=== PATIENT | female | born 1965 | race Two or more races ===

== ENCOUNTER → 2017-05-18 | Outpatient (CLI) | payer OTHER | END | disposition home or self-care (01) | LOC: CFH 14:15 | PROVIDERS: ATTEND Nurse Practitioner | DX: Z12.31 Encounter for screening mammogram for malignant neoplasm of breast (principal) | CPT/HCPCS: G0202 ==

== ENCOUNTER 2021-01-26 14:55 | Emergency (ER) | payer BC ==
[~2021-01-26] VITALS: Ht 165.1 cm; Wt 65.6 kg
[2021-01-26] MEDS ORDERED: MORPHINE SULFATE 4 MG/ML, 1ML IVPush PRN (15:30)
[2021-01-26] MEDS ORDERED: SODIUM CHLORIDE FLUSH 10ML SYR IVF ONE (15:30)
[2021-01-26] MEDS ORDERED: ONDANSETRON 2MG/ML, 2ML IVPush ONE (15:30)
[2021-01-26 15:36] LABS: BASOPHILS % (AUTO) 1 % (0-1); EOSINOPHILS % (AUTO) 2 % (1-7); LYMPHOCYTES % (AUTO) 24 % (22-44); MEAN CORPUSCULAR HEMOGLOBIN 30.2 pg (27.0-34.8); MEAN CORPUSCULAR HGB CONC 34.1 g/dL (32.4-35.8); MEAN PLATELET VOLUME 7.6 fL (7.4-10.4); MONOCYTES % (AUTO) 7 % (2-9); NEUTROPHILS % (AUTO) 66 % (42-75); PLATELET COUNT 271 x10^3/uL (130-400); RED BLOOD COUNT 4.51 x10^6/uL (3.82-5.3); RED CELL DISTRIBUTION WIDTH 12.8 % (9.6-15.2)
[2021-01-26 15:38] LABS: MD NO
[2021-01-26 15:42] LABS: MICROSCOPIC AUTO
[2021-01-26] MEDS ORDERED: ONDANSETRON 2MG/ML, 2ML ONE (15:48)
[2021-01-26 15:49] LABS: ALANINE AMINOTRANSFERASE 38 U/L (12-78); ALBUMIN 3.9 g/dL (3.4-5.0); ANION GAP 6 mmol/L (5-15); CALCIUM 9.3 mg/dL (8.5-10.1); CHLORIDE 109 mmol/L (98-107); CREATININE 0.78 mg/dL (0.55-1.02)
[2021-01-26] MEDS ORDERED: MORPHINE SULFATE 4 MG/ML, 1ML ONE (15:49)
[2021-01-26 15:52] LABS: ALKALINE PHOSPHATASE 83 U/L (45-117); BILIRUBIN,TOTAL 0.3 mg/dL (0.2-1.0); TOTAL PROTEIN 7.3 g/dL (6.4-8.2)
--- NOTE | 2021-01-26 15:55 | NUR ---
PT HAS CO ABDOMINAL PAIN, FLANK PAIN. DENIES PAINUFL URINATION MEDICATED FOR PAIN. IV ESTABLISHED.
--- NOTE | 2021-01-26 16:42 | NUR ---
REPORT TO LONNIE
--- NOTE | 2021-01-26 16:42 | NUR ---
RECEIVED REPORT FROM FRANC ZAIDI. PT RESTING ON ZARIALUPE. NADN. ADORNO.
[2021-01-26] MEDS ORDERED: MAGNESIUM CITRATE 300ML ORAL SOL ONE (16:52)
[2021-01-26] MEDS ORDERED: MAGNESIUM CITRATE 300ML ORAL SOL PO ONE (17:00)
[2021-01-26 17:42] VITALS: BP 113/66
--- NOTE | 2021-01-26 17:42 | NUR ---
PT STATES NO CHANGES AFTER MEDICATION. NO BM. PT RESTING ON GURNEY. NADN. VSS. PT PLACED FOR RECHECK.
== END 2021-01-26 18:09 | disposition home or self-care (01) ==
LOC: EDBD → MERGE 15:25 → ED 15:25
DX: K59.00 Constipation, unspecified (principal); R10.32 Left lower quadrant pain; K86.2 Cyst of pancreas
CPT/HCPCS: 36415; 74176; 80053; 81001; 83690; 85025; 87086; 96374; 96375; 99284; J2270; J2405

== ENCOUNTER 2021-01-27 22:49 | Emergency (ER) | payer BC ==
[~2021-01-27] VITALS: Ht 165.1 cm; Wt 66.4 kg
--- NOTE | 2021-01-27 23:18 | NUR ---
PT STATES HAD HAD PAIN IN LLQ OF ABD SINCE Thursday01/24/21. PT WAS HERE YESTERDAY FOR SAME REASON.
[2021-01-27] MEDS ORDERED: ONDANSETRON 2MG/ML, 2ML IVPush ONE (23:30)
[2021-01-27] MEDS ORDERED: MORPHINE SULFATE 4 MG/ML, 1ML IVPush ONE (23:30)
[2021-01-27] MEDS ORDERED: LIDOCAINE-MPF 1%, 5ML ONE (23:58)
[2021-01-27 23:59] LABS: MICROSCOPIC NOT IND
[2021-01-28] MEDS ORDERED: HYDROmorphone 1 MG/ML, 1ML INJ IV ONE
[2021-01-28] MEDS ORDERED: HYDROmorphone 1 MG/ML, 1ML INJ ONE (00:14)
[2021-01-28] MEDS ORDERED: ONDANSETRON 2MG/ML, 2ML ONE (00:14)
[2021-01-28 00:20] LABS: BASOPHILS % (AUTO) 1 % (0-1); EOSINOPHILS % (AUTO) 3 % (1-7); LYMPHOCYTES % (AUTO) 33 % (22-44); MEAN CORPUSCULAR HEMOGLOBIN 30.3 pg (27.0-34.8); MEAN CORPUSCULAR HGB CONC 34.1 g/dL (32.4-35.8); MEAN PLATELET VOLUME 7.8 fL (7.4-10.4); MONOCYTES % (AUTO) 8 % (2-9); NEUTROPHILS % (AUTO) 56 % (42-75); PLATELET COUNT 272 x10^3/uL (130-400); RED CELL DISTRIBUTION WIDTH 12.9 % (9.6-15.2)
[2021-01-28 00:21] LABS: MD NO
[2021-01-28 00:27] LABS: ALBUMIN 4.4 g/dL (3.4-5.0); ANION GAP 5 mmol/L (5-15); CALCIUM 9.5 mg/dL (8.5-10.1); CHLORIDE 107 mmol/L (98-107); CREATININE 0.92 mg/dL (0.55-1.02)
[2021-01-28] MEDS ORDERED: OMNIPAQUE 350 MG/ML, 100ML BOTTLE ONE (01:00)
--- NOTE | 2021-01-28 01:21 | NUR ---
PT TO CT.
--- NOTE | 2021-01-28 02:00 | NUR ---
Pt states did have small amount of blood in stool. Pt in bed resting NADN. VSS. Rail within reach and call remote within reach.
[2021-01-28 04:51] VITALS: BP 116/65
== END 2021-01-28 04:55 | disposition home or self-care (01) ==
LOC: ED 23:51
DX: K52.9 Noninfective gastroenteritis and colitis, unspecified (principal)
CPT/HCPCS: 36415; 74177; 80048; 81003; 82040; 85025; 96374; 96375; 99285; J1170; J2405; Q9967

== ENCOUNTER → 2021-02-06 | Outpatient (CLI) | payer BC ==
[~2021-02-06] MED LIST: GADOTERATE 10 MMOL/20 ML VIAL ONE
== END | disposition home or self-care (01) ==
LOC: CFH 06:47
PROVIDERS: ATTEND Nurse Practitioner Family
DX: K86.89 Other specified diseases of pancreas (principal)
CPT/HCPCS: 74183; A9575

== ENCOUNTER 2021-05-03 05:32 | Day surgery (SDC) | payer BC ==
[~2021-05-03] VITALS: Ht 165.1 cm; Wt 67.5 kg
[~2021-05-03 05:32] MED LIST changes: -GADOTERATE 10 MMOL/20 ML VIAL ONE; +TRAM50TA2 PO
[2021-05-03 06:29] VITALS: BP 146/86
[2021-05-03] MEDS ORDERED: LACTATED RINGERS 1,000 ML IV SCH (06:30)
[2021-05-03] MEDS ORDERED: CHLORHEXIDINE 15 ML UDC PO ONE (06:30)
[2021-05-03] MEDS ORDERED: LIDOCAINE-MPF 1%, 2ML ONE (06:37)
[2021-05-03] MEDS ORDERED: LIDOCAINE-MPF 1%, 2ML INFIL ONE (07:00)
[2021-05-03] MEDS ORDERED: MIDAZOLAM 1 MG/ML, 2ML ONE (07:19)
[2021-05-03] MEDS ORDERED: FENTANYL PF 100 MCG/2ML ONE (07:19)
[2021-05-03] MEDS ORDERED: OMNIPAQUE 350 MG/ML, 50 ML BOTTLE ONE (07:25)
[2021-05-03] MEDS ORDERED: ROCURONIUM 10 MG/ML,10ML ONE (07:40)
[2021-05-03] MEDS ORDERED: DEXAMETHASONE 4 MG/ML, 1ML ONE (07:40)
[2021-05-03] MEDS ORDERED: SUCCINYLCHOLINE 20 MG/ML, 10ML ONE (07:40)
[2021-05-03] MEDS ORDERED: PROPOFOL 10 MG/ML, 20ML ONE (07:59)
[2021-05-03] MEDS ORDERED: CEFAZOLIN 1,000 MG ONE (07:59)
[2021-05-03] MEDS ORDERED: KETOROLAC 30 MG/1 ML ONE (07:59)
[2021-05-03] MEDS ORDERED: LIDOCAINE-MPF 2% ,5ML ONE (07:59)
[2021-05-03] MEDS ORDERED: ONDANSETRON 2MG/ML, 2ML ONE (07:59)
[2021-05-03] MEDS ORDERED: ALBUTEROL SULFATE 2.5 MG/3 ML NPPB PRN (08:00)
[2021-05-03] MEDS ORDERED: OXYcodone 5 MG/5 ML ORAL.SOL UDC PO PRN (08:00)
[2021-05-03] MEDS ORDERED: PROMETHAZINE 25 MG/ML, 1ML IVPush PRN (08:00)
[2021-05-03] MEDS ORDERED: FENTANYL PF 100 MCG/2ML IV PRN (08:00)
[2021-05-03] MEDS ORDERED: ACETAMINOPHEN 325 MG TABLET PO PRN (08:00)
[2021-05-03] MEDS ORDERED: MEPERIDINE/PF 25MG/0.5ML IVPush PRN (08:00)
[2021-05-03] MEDS ORDERED: LABETALOL 5MG/ML, 20ML IV PRN (08:00)
[2021-05-03] MEDS ORDERED: MIDAZOLAM 1 MG/ML, 2ML IV PRN (08:00)
[2021-05-03] MEDS ORDERED: GLUCAGON 1 MG ONE (08:53)
== END 2021-05-03 09:55 | disposition home or self-care (01) ==
LOC: OUT 05:32
PROVIDERS: ATTEND Internal Medicine
DX: R10.32 Left lower quadrant pain (principal); Q44.4 Choledochal cyst
CPT/HCPCS: 43259; 43262; 74328; C1769; J0330; J1100; J1610; J1885; J2250; J2405; J2704; J3010; J7120; Q9967; J0690